=== PATIENT | male | born 1960 | race Caucasian/White ===

== ENCOUNTER → 2024-07-30 12:51 | Outpatient (REF) | payer MEDICARE, SELFPAY | LOC: MRI 3T 12:51 | PROVIDERS: ATTENDING PHYSICIAN Psychiatry & Neurology Neurology; FAMILY PHYSICIAN Internal Medicine | DX: C71.9 Malignant neoplasm of brain, unspecified (principal) | CPT/HCPCS: 70553; A9575 ==

== ENCOUNTER 2025-03-28 06:23 | Day surgery (SDC) | payer OTHER, SELFPAY | END 2025-03-28 09:24 | disposition home or self-care (01) | LOC: GI 06:23 | PROVIDERS: ATTENDING PHYSICIAN Internal Medicine Gastroenterology | DX: Z12.11 Encounter for screening for malignant neoplasm of colon (principal); Z86.0100 Personal history of colon polyps, unspecified; K64.8 Other hemorrhoids; K63.5 Polyp of colon | CPT/HCPCS: 45380; 88305 ==

== ENCOUNTER 2025-04-04 15:16 | Outpatient (RCR) | payer OTHER, SELFPAY | END 2025-04-04 23:59 | disposition home or self-care (01) | LOC: RPT 15:16 | PROVIDERS: ATTENDING PHYSICIAN Psychiatry & Neurology Neurology; FAMILY PHYSICIAN Internal Medicine | DX: G40.89 Other seizures (principal); C71.9 Malignant neoplasm of brain, unspecified; Z73.6 Limitation of activities due to disability; R26.2 Difficulty in walking, not elsewhere classified; M62.81 Muscle weakness (generalized); R26.89 Other abnormalities of gait and mobility | CPT/HCPCS: 97110; 97112; 97162 ==

== ENCOUNTER → 2025-04-30 10:44 | Outpatient (REF) | payer OTHER, SELFPAY | LOC: MRI 3T 10:44 | PROVIDERS: ATTENDING PHYSICIAN Psychiatry & Neurology Neurology; FAMILY PHYSICIAN Internal Medicine | DX: C71.9 Malignant neoplasm of brain, unspecified (principal) | CPT/HCPCS: 70553; A9575 ==

== ENCOUNTER 2025-05-01 11:44 | Outpatient (RCR) | payer OTHER, SELFPAY | END 2025-05-01 23:59 | disposition home or self-care (01) | LOC: RPT 11:44 | PROVIDERS: ATTENDING PHYSICIAN Psychiatry & Neurology Neurology; FAMILY PHYSICIAN Internal Medicine | DX: G40.89 Other seizures (principal); C71.9 Malignant neoplasm of brain, unspecified; Z73.6 Limitation of activities due to disability; R26.2 Difficulty in walking, not elsewhere classified; M62.81 Muscle weakness (generalized); R26.89 Other abnormalities of gait and mobility; M25.511 Pain in right shoulder | CPT/HCPCS: 97110; 97112 ==

== ENCOUNTER 2025-06-06 15:03 | Outpatient (RCR) | payer OTHER, SELFPAY | END 2025-06-06 23:59 | disposition home or self-care (01) | LOC: RPT 15:03 | PROVIDERS: ATTENDING PHYSICIAN Psychiatry & Neurology Neurology; FAMILY PHYSICIAN Internal Medicine | DX: G40.89 Other seizures (principal); C71.9 Malignant neoplasm of brain, unspecified; Z73.6 Limitation of activities due to disability; R26.2 Difficulty in walking, not elsewhere classified; M62.81 Muscle weakness (generalized); R26.89 Other abnormalities of gait and mobility; M25.511 Pain in right shoulder | CPT/HCPCS: 97110; 97112; 97140 ==

== ENCOUNTER → 2025-06-10 10:55 | Outpatient (REF) | payer OTHER, SELFPAY | LOC: RAD 10:55 | PROVIDERS: ATTENDING PHYSICIAN Psychiatry & Neurology Neurology; FAMILY PHYSICIAN Internal Medicine | DX: C71.9 Malignant neoplasm of brain, unspecified (principal) | CPT/HCPCS: 70496; 70498; Q9967 ==

== ENCOUNTER 2025-06-17 07:31 | Outpatient (RCR) | payer OTHER, SELFPAY | END 2025-06-17 23:59 | disposition home or self-care (01) | LOC: RPT 07:31 | PROVIDERS: ATTENDING PHYSICIAN Psychiatry & Neurology Neurology; FAMILY PHYSICIAN Internal Medicine | DX: G40.89 Other seizures (principal); C71.9 Malignant neoplasm of brain, unspecified; Z73.6 Limitation of activities due to disability; R26.2 Difficulty in walking, not elsewhere classified; M62.81 Muscle weakness (generalized); R26.89 Other abnormalities of gait and mobility; M25.511 Pain in right shoulder | CPT/HCPCS: 97110; 97140 ==

== ENCOUNTER 2025-07-31 11:18 | Outpatient (RCR) | payer OTHER, SELFPAY | END 2025-07-31 23:59 | disposition home or self-care (01) | LOC: RPT 11:18 | PROVIDERS: ATTENDING PHYSICIAN Psychiatry & Neurology Neurology; FAMILY PHYSICIAN Internal Medicine | DX: G40.89 Other seizures (principal); C71.9 Malignant neoplasm of brain, unspecified; Z73.6 Limitation of activities due to disability; R26.2 Difficulty in walking, not elsewhere classified; M62.81 Muscle weakness (generalized); R26.89 Other abnormalities of gait and mobility; M25.511 Pain in right shoulder | CPT/HCPCS: 97110; 97112 ==

== ENCOUNTER → 2025-09-02 08:10 | Outpatient (REF) | payer OTHER, SELFPAY | LOC: HWRCS 08:10 | PROVIDERS: FAMILY PHYSICIAN Internal Medicine | DX: C71.9 Malignant neoplasm of brain, unspecified (principal); I63.9 Cerebral infarction, unspecified | CPT/HCPCS: 93306 ==

== ENCOUNTER 2025-09-12 08:13 | Outpatient (RCR) | payer OTHER, SELFPAY | END 2025-09-12 23:59 | disposition home or self-care (01) | LOC: ROT 08:13 | PROVIDERS: ATTENDING PHYSICIAN Psychiatry & Neurology Neurology; FAMILY PHYSICIAN Internal Medicine | DX: C71.9 Malignant neoplasm of brain, unspecified (principal); Z73.6 Limitation of activities due to disability; I69.351 Hemiplegia and hemiparesis following cerebral infarction affecting right dominant side; G40.909 Epilepsy, unspecified, not intractable, without status epilepticus; R26.89 Other abnormalities of gait and mobility; M62.81 Muscle weakness (generalized) | CPT/HCPCS: 97110; 97112; 97116; 97163; 97167; 97530; 97537 ==

== ENCOUNTER 2025-10-10 06:54 | Outpatient (RCR) | payer OTHER, SELFPAY | END 2025-10-10 23:59 | disposition home or self-care (01) | LOC: ROT 06:54 | PROVIDERS: ATTENDING PHYSICIAN Psychiatry & Neurology Neurology; FAMILY PHYSICIAN Internal Medicine | DX: C71.9 Malignant neoplasm of brain, unspecified (principal); Z73.6 Limitation of activities due to disability; G40.909 Epilepsy, unspecified, not intractable, without status epilepticus; R26.89 Other abnormalities of gait and mobility; I69.351 Hemiplegia and hemiparesis following cerebral infarction affecting right dominant side | CPT/HCPCS: 97110; 97112; 97116; 97530 ==

== ENCOUNTER 2025-11-12 10:26 | Outpatient (RCR) | payer OTHER, SELFPAY | END 2025-11-12 23:59 | disposition home or self-care (01) | LOC: ROT 10:26 | PROVIDERS: ATTENDING PHYSICIAN Psychiatry & Neurology Neurology; FAMILY PHYSICIAN Internal Medicine | DX: C71.9 Malignant neoplasm of brain, unspecified (principal); Z73.6 Limitation of activities due to disability; I69.351 Hemiplegia and hemiparesis following cerebral infarction affecting right dominant side; G40.909 Epilepsy, unspecified, not intractable, without status epilepticus; R26.89 Other abnormalities of gait and mobility | CPT/HCPCS: 97110; 97112; 97116; 97530; 97535; 97537 ==